=== PATIENT | male | born 1955 | race Caucasian/White ===

== ENCOUNTER 2018-02-17 10:20 | Outpatient (CLI) | payer OTHER ==
--- NOTE | 2018-02-17 15:47 | RAD ---
RIGHT HIP TWO VIEW: 02/17/18 HISTORY: Right hip pain for six months. COMPARISON: None. FINDINGS: There is mild superolateral joint space narrowing. Small acetabular osteophyte formation is present. There is also osteophyte formation of the femoral head/neck junction. Phleboliths in the pelvis. Obtu rator ring on the right is intact. 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 IMPRESSION: Mild to moderate degenerative changes. No acute abnormality. POS: [facility]
== END 2018-02-17 10:21 | disposition home or self-care (01) ==
LOC: MADRAD 10:20
PROVIDERS: ATTEND Family Medicine
DX: R10.31 Right lower quadrant pain (principal); M16.11 Unilateral primary osteoarthritis, right hip